=== PATIENT | male | born 1950 | race Caucasian/White ===

== ENCOUNTER 2017-06-30 11:54 | Emergency (ER) | payer BC ==
[2017-06-30 12:26] VITALS: BP 153/112
--- NOTE | 2017-06-30 12:44 | UC ---
Truncal Trauma HPI - HPI Summary HPI Summary: Fell while downhill skiing 2 days ago, landing on R side with RFA underneath him. Since then has had R trunk pain, worsening since fall. This morning was very painful getting out of bed but is a little better now. Denies fever or trouble breathing, but does have significant pain with cough, sneezes, twisting , or R arm use. No hx of lung disease or breathing problems. - History Of Current Complaint Chief Complaint: UCUpperExtremity Stated Complaint: RIB INJURY Time Seen by Provider: 06/30/17 12:19 Hx Obtained From: Patient Onset/Duration: Sudden Onset, Still Present Onset Of Pain: Immediate Severity Initially: Mild Severity Currently: Moderate Pain Intensity: 7 Mechanism Of Injury: Fall From A Standing Position - going approx 20mph on skis Aggravating Factor(s): Movement, Deep Breathing, Cough Alleviating factor(s): Compression, Shallow Breathing Associated Signs And Symptoms: Positive: Negative - Allergies/Home Medications Allergies/Adverse Reactions: Allergies Allergy/AdvReac Type Severity Reaction Status Date / Time No Known Allergies Allergy Verified 06/30/17 12:35 Home Medications: Home Medications Acetaminophen TAB* [Tylenol TAB*] 1,000 mg PO DAILY PRN 06/30/17 [History Confirmed 06/30/17] PMH/Surg Hx/FS Hx/Imm Hx Previously Healthy: Yes - Surgical History Surgical History: Yes Surgery Procedure, Year, and Place: asplenic - Family History Known Family History: Positive: Hypertension - Social History Occupation: Employed Full-time Lives: With Family Alcohol Use: None Substance Use Type: None Smoking Status (MU): Never Smoked Tobacco Review of Systems Constitutional: Negative Skin: Negative Eyes: Negative ENT: Negative Respiratory: Negative Cardiovascular: Negative Gastrointestinal: Negative Genitourinary: Negative Motor: Negative Neurovascular: Negative Musculoskeletal: Arthralgia Neurological: Negative Psychological: Negative Is Patient Immunocompromised?: No All Other Systems Reviewed And Are Negative: Yes Physical Exam Triage Information Reviewed: Yes Appearance: Well-Appearing, Well-Nourished, Pain Distress - with movement, R arm use Vital Signs: Initial Vital Signs Temp 97.4 F 06/30/17 12:17 Pulse 100 06/30/17 12:17 Resp 16 06/30/17 12:17 BP 153/112 06/30/17 12:17 Pulse Ox 95 06/30/17 12:17 Vital Signs Reviewed: Yes Eye Exam: Normal Eyes: Positive: Conjunctiva Clear ENT Exam: Normal ENT: Positive: Normal ENT inspection, Hearing grossly normal, Pharynx normal, TMs normal Neck exam: Normal Neck: Positive: Supple, Nontender Respiratory Exam: Other - R rib tenderness Respiratory: Positive: Lungs clear, Normal breath sounds, No respiratory distress, No accessory muscle use Cardiovascular Exam: Normal Cardiovascular: Positive: RRR, No Murmur Abdomen Description: Positive: Nontender, Soft Musculoskeletal Exam: Other - R lower lateral ribs tender to palp, pain with indirect stress Neurological Exam: Normal Neurological: Positive: Alert Psychological Exam: Normal Skin Exam: Normal Truncal Trauma Course/Dx - Differential Dx/Diagnosis Provider Diagnoses: Rib fracture R ribs, clinical diagnosis. elevated blood pressure from pain Discharge - Discharge Plan Condition: Stable Disposition: HOME Prescriptions: HYDROcodone/ACETAMIN 5-325 MG* [[place] 5-325 TAB*] 1 tab PO Q6H PRN #15 tab MDD 4 PRN Reason: Pain Patient Education Materials: Rib Fracture (ED) Referrals: Yan Lares MD [Primary Care Provider] - 1 Week Additional Instructions: I suspect you have a broken bone in your right rib cage. Since your vital signs are stable and since x-rays rarely liner roll changer of these injuries, I am treating you clinically. Continue to walk and be as active as is tolerable. Keep taking ibuprofen 600mg ( 3 otc pills) 3 times per day for the next few days; as pain improves, you can reduce your dose and frequency of dosing. Use the hydrocodone or ice packs for more severe pain. If you develop fever or trouble breathing, please come back or see your primary care provider.
== END 2017-06-30 12:42 | disposition home or self-care (01) ==
LOC: UCEAST 11:54
DX: S22.41XA Multiple fractures of ribs, right side, initial encounter for closed fracture (principal); V00.321A Fall from snow-skis, initial encounter; Y93.23 Activity, snow (alpine) (downhill) skiing, snowboarding, sledding, tobogganing and snow tubing; Y92.9 Unspecified place or not applicable; R03.0 Elevated blood-pressure reading, without diagnosis of hypertension
CPT/HCPCS: 99212; G0463